=== PATIENT | male | born 1950 | race Caucasian/White ===

== ENCOUNTER 2021-02-25 10:23 | Inpatient (IN) | payer BC ==
[~2021-02-25] VITALS: Ht 175.3 cm; Wt 75.5 kg
[2021-02-25] MEDS ORDERED: IV NS 0.9% 1,000 ML BAG IV ONE (10:30)
--- NOTE | 2021-02-25 10:34 | NUR ---
The patient is [id number],from home, c/o generalized weakness, BS high result. The patient is alert and oriented x3. Denies pain. In room air and denies SOB. Respiration regular and unlabored. Attach the patient to the monitor.
--- NOTE | 2021-02-25 10:36 | NUR ---
STARTED IV LINE, BLOOD SPECIMEN COLLECTED AND SENT TO THE LAB.
[2021-02-25 10:45] LABS: BASOPHILS # (AUTO) 0.3 K/uL (0.0-0.2); BASOPHILS % (AUTO) 1.9 % (0.0-2.0); EOSINOPHILS % (AUTO) 0.5 % (0.0-6.0); HEMATOCRIT 47 % (39-51); HEMOGLOBIN 15.8 g/dL (13.5-17.5); LYMPHOCYTES # (AUTO) 1.3 K/uL (0.8-4.8); LYMPHOCYTES % (AUTO) 9.8 % (20.0-44.0); MEAN CORPUSCULAR HGB CONC 33 g/dl (31.0-36.0); MEAN CORPUSCULAR VOLUME 90 fL (80-96); MONOCYTES # (AUTO) 0.8 K/uL (0.1-1.30); MONOCYTES % (AUTO) 5.5 % (2.0-12.0); NEUTROPHILS # (AUTO) 11.2 K/uL (1.8-8.9); NEUTROPHILS % (AUTO) 82.3 % (43.0-81.0); PLATELET COUNT (AUTO) 444 K/uL (150-450); RED BLOOD CELL COUNT(AUTO) 5.29 MIL/uL (4.5-6.0); WHITE BLOOD COUNT (AUTO) 13.7 K/uL (4.3-11.0)
--- NOTE | 2021-02-25 10:48 | NUR ---
COVID SWAB DONE AND SENT TO THE LAB
[2021-02-25] MEDS ORDERED: RIVA2.5T PO (11:03)
[2021-02-25] MEDS ORDERED: LORA-259 PO (11:03)
[2021-02-25] MEDS ORDERED: BUTA1CAP46 PO (11:03)
[2021-02-25] MEDS ORDERED: ALBU18HF2 IH (11:03)
[2021-02-25] MEDS ORDERED: METO50TA7 PO (11:03)
[2021-02-25] MEDS ORDERED: ICOS1CAP PO (11:03)
[2021-02-25 11:05] LABS: ALANINE AMINOTRANSFERASE 26 U/L (12-78); ALBUMIN 3.6 g/dL (3.4-5.0); ALKALINE PHOSPHATASE 96 U/L (46-116); ASPARTATE AMINOTRANSFERASE 15 U/L (15-37); BILIRUBIN,DIRECT 0.2 mg/dL (0.0-0.2); BILIRUBIN,TOTAL 0.8 mg/dL (0.2-1.0); CALCIUM, SERUM 9.5 mg/dL (8.5-10.1); CARBON DIOXIDE 24 mmol/L (21-32); CHLORIDE 95 mmol/L (98-107); POTASSIUM 3.8 mmol/L (3.5-5.1); SODIUM SERUM 131 mmol/L (136-145); TOTAL PROTEIN, SERUM 8.3 g/dL (6.4-8.2); UREA NITROGEN, BLOOD 33 mg/dL (7-18)
[2021-02-25 11:06] LABS: GLUCOSE 539 mg/dL (74-106)
[2021-02-25 11:30] LABS: LYMPHOCYTES % (MANUAL) 13 % (16-48); MONOCYTES % (MANUAL) 10 % (0-11.0); NEUTROPHILS % (MANUAL) 77 (42-76)
[2021-02-25] MEDS ORDERED: INSULIN REGULAR, HUMAN 100 UNIT/ML 10 ML VIAL SQ ONE ×2 (11:30→14:00)
[2021-02-25] MEDS ORDERED: INSULIN REGULAR, HUMAN 100 UNIT/ML 10 ML VIAL ONE (11:37)
--- NOTE | 2021-02-25 11:48 | NUR ---
CALLED NURSING SUP REGARDING PT BED
--- NOTE | 2021-02-25 12:09 | NUR ---
URINE COLLECTED AND SENT TO THE LAB
[2021-02-25 12:50] LABS: BILIRUBIN,URINE Negative (NEGATIVE); LEUKOCYTE ESTERASE ,URINE Negative (NEGATIVE); NITRITE, URINE Negative (NEGATIVE); PH,URINE 5.5 (5.0-8.0); PROTEIN,URINE 100 mg/dl (NEGATIVE); UGLUCOSE >=1000 mg/dL (NEGATIVE); UROBILINOGEN,URINE 0.2 EU/dL (0.2)
[2021-02-25 13:07] LABS: COLOR,URINE DARK YELLOW (YELLOW)
[2021-02-25 13:15] LABS: BACTERIA,URINE Few /HPF (None Seen); RBC,URINE 81-100 /HPF (0-2); SQUAMOUS EPITHELIAL CELL,UR Rare /HPF (None Seen); WBC,URINE 0-2 /HPF (0-3)
[2021-02-25 13:16] LABS: URIC ACID CRYSTALS,URINE Moderate /HPF (None Seen)
--- NOTE | 2021-02-25 13:34 | NUR ---
BS 473. HOMA STARR AWARE
[2021-02-25] MEDS ORDERED: IV NS 0.9% 1,000 ML IV ONE (14:00)
--- NOTE | 2021-02-25 14:41 | NUR ---
room 312-1
[2021-02-25 14:50] VITALS: BP 135/79
--- NOTE | 2021-02-25 14:57 | NUR ---
REPORT GIVEN TO NURSE MOMIN
--- NOTE | 2021-02-25 15:20 | NUR ---
TRAFFIC OPERATORDISTRICT EXTENSION SERVICE AGENT NOTES RECEIVED PATIENT FROM ER ENDORSED BY NURSE RAMILA MARCOS. ON ROOM AIR TOLERATING WELL. NO SOB NOTED. NOT IN DISTRESS. WITH NO COMPLAINTS OF PAIN AT THIS TIME. WITH IV ACCESS AT RIGHT AC G18, INTACT AND PATENT. MADE COMFORTABLE ON BED. ON TELE MONITOR CURRENTLY READING SINUS TACHYCARDIA AT 115BPM. SKIN ASSESSMENT DONE. PHOTO TAKEN AND PLACED ON CHART. SAFETY MEASURES IN PLACED. BED ON LOWEST AND LOCKED POSITION, SIDE RAILS UP X2. CALL LIGHT WITHIN REACH. WILL CONTINUE TO MONITOR.
--- NOTE | 2021-02-25 16:07 | NUR ---
wheeled patient via gurney accompanied by RN and emt in no distress. RN assigned to patient at bedside to assume care.
[2021-02-25] MEDS ORDERED: Z GUARD REMEDY 2 OZ OINT TP PRN (17:00)
[2021-02-25] MEDS ORDERED: ZOLPIDEM TARTRATE 5 MG TABLET PO PRN (17:00)
[2021-02-25] MEDS ORDERED: MAG HYDROX/AL HYDROX/SIMETH 30 ML UDC PO PRN (17:00)
[2021-02-25] MEDS ORDERED: MAGNESIUM HYDROXIDE 30 ML UDC PO PRN (17:00)
[2021-02-25] MEDS ORDERED: DEXTROSE 50%-WATER 50 ML DISP.SYRIN IV PRN (17:00)
--- NOTE | 2021-02-25 17:30 | NUR ---
HEAD CHEF CLOSING NOTES PATIENT RESTING ON BED AND A/O X3. ON ROOM AIR TOLERATING WELL. NO SOB NOTED. NOT IN DISTRESS. WITH NO COMPLAINTS OF PAIN AT THIS TIME. WITH IV ACCESS AT RIGHT AC G18 WITH NS AT 75ML/HR INFUSING WELL. ON TELE MONITOR CURRENTLY READING SINUS TACHYCARDIA AT 118BPM. SAFETY MEASURES IN PLACED. BED ON LOWEST AND LOCKED POSITION, SIDE RAILS UP X2. CALL LIGHT WITHIN REACH. WILL ENDORSE TO NEXT SHIFT FOR STUART.
[2021-02-25 18:00] VITALS: BP 166/82
[2021-02-25] MEDS ORDERED: ALBUTEROL FS 2.5 MG/0.5 ML VIAL.NEB IH PRN (18:00)
[2021-02-25] MEDS: BLOOD SUGAR DIAGNOSTIC 1 EACH STRIP VI SCH ×2 (18:40→21:54)
[2021-02-25] MEDS: INSULIN REGULAR, HUMAN 100 UNIT/ML 3 ML VIAL SQ PRN (18:42)
[2021-02-25] MEDS: IV NS 0.9% 1,000 ML IV PRN (19:30)
--- NOTE | 2021-02-25 19:30 | NUR ---
RN NOTE PT RECEIVED IN BED. PT IS ON ROOM AIR SHOWING NO S/S OF RESP DISTRESS/SOB. BREATHING EVEN AND UNLABORED. ON MANAGER PERSONNEL SELECTION SHOWING ST. PT IS ALERT AND ORIENTED X3. RIGHT KNEE SCAB NOTED. IV ACCESS NOTED ON RIGHT AC #18. LINE FLUSHED, PATENT, AND INTACT WITH NO SIGNS OF INFILTRATION. ALL SAFETY MEASURES IMPLEMENTED. CALL LIGHT WITHIN REACH. BED ALARM ON. BED LOCKED AND IN LOWEST POSITION. WILL CONTINUE TO MONITOR AND ASSESS FOR ANY CHANGES DURING SHIFT.
[2021-02-25 20:00] VITALS: BP 143/73
[2021-02-25] MEDS: RIVAROXABAN 10 MG TABLET PO SCH (21:26)
[2021-02-25] MEDS: METOPROLOL SUCCINATE 50 MG TAB.SR.24H PO SCH (21:26)
--- NOTE | 2021-02-25 21:47 | NUR ---
RN NOTE PT DROPPED METOPROLOL. PULLED OUT ANOTHER METOPROLOL FROM [employer]. HOSPITALITY HOST AWARE.
[2021-02-25] MEDS: *INSULIN REGULAR(HUMULIN R)HUM 100 UNIT/ML VIAL SQ PRN (21:53)
[2021-02-26] VITALS: BP 148/90
[2021-02-26 04:00] VITALS: BP 146/86
--- NOTE | 2021-02-26 06:38 | NUR ---
RN NOTE PT PULLED OUT IV LINE. IV RE-INSERTED IN RIGHT AC #22. LINE FLUSHED, PATENT, AND INTACT.
--- NOTE | 2021-02-26 06:49 | NUR ---
RN NOTE NO CHANGES IN PT CONDITION DURING SHIFT. PT RESTING COMFORTABLY. ON ROOM AIR SHOWING NO S/S OF RESP DISTRESS/SOB. BREATHING EVEN AND UNLABORED. IV ACCESS NOTED ON RIGHT AC #22. LINE FLUSHED, PATENT, AND INTACT WITH NO SIGNS OF INFILTRATION. ALL DUE MEDS GIVEN ORDERED. PT KEPT CLEAN AND COMFORTABLE. ALL SAFETY MEASURES IMPLEMENTED. CALL LIGHT WITHIN REACH. BED ALARM ON. BED LOCKED AND IN LOWEST POSITION. WILL ENDORSE TO MORNING SHIFT RN FOR STUART.
--- NOTE | 2021-02-26 07:30 | NUR ---
CHRONOMETER ASSEMBLER AND ADJUSTER OPENING NOTES PATIENT RESTING ON BED AND A/O X3. ON ROOM AIR TOLERATING WELL. NO SOB NOTED. NOT IN DISTRESS. WITH NO COMPLAINTS OF PAIN AT THIS TIME. WITH IV ACCESS AT RIGHT AC G 22 WITH NS AT 75ML/HR INFUSING WELL. ON TELE MONITOR CURRENTLY READING SINUS TACHYCARDIA AT 105 BPM. SAFETY MEASURES IN PLACED. BED ON LOWEST AND LOCKED POSITION, SIDE RAILS UP X2. CALL LIGHT WITHIN REACH. WILL CONTINUE TO MONITOR.
[2021-02-26] MEDS: BLOOD SUGAR DIAGNOSTIC 1 EACH STRIP VI SCH ×4 (07:35→22:07)
[2021-02-26] MEDS: INSULIN REGULAR, HUMAN 100 UNIT/ML 3 ML VIAL SQ PRN ×3 (07:38→17:27)
[2021-02-26 07:40] LABS: BASOPHILS # (AUTO) 0.1 K/uL (0.0-0.2); BASOPHILS % (AUTO) 0.9 % (0.0-2.0); EOSINOPHILS % (AUTO) 1.2 % (0.0-6.0); HEMATOCRIT 42 % (39-51); HEMOGLOBIN 14.2 g/dL (13.5-17.5); LYMPHOCYTES # (AUTO) 2.2 K/uL (0.8-4.8); LYMPHOCYTES % (AUTO) 16.3 % (20.0-44.0); MEAN CORPUSCULAR HGB CONC 34 g/dl (31.0-36.0); MEAN CORPUSCULAR VOLUME 89 fL (80-96); MONOCYTES # (AUTO) 0.9 K/uL (0.1-1.30); MONOCYTES % (AUTO) 6.6 % (2.0-12.0); NEUTROPHILS # (AUTO) 10.2 K/uL (1.8-8.9); PLATELET COUNT (AUTO) 350 K/uL (150-450); RED BLOOD CELL COUNT(AUTO) 4.69 MIL/uL (4.5-6.0); WHITE BLOOD COUNT (AUTO) 13.6 K/uL (4.3-11.0)
[2021-02-26] MEDS: PANTOPRAZOLE 40 MG TABLET.DR PO SCH (07:48)
[2021-02-26 08:00] VITALS: BP 167/94
[2021-02-26 08:10] LABS: CALCIUM, SERUM 8.9 mg/dL (8.5-10.1); CARBON DIOXIDE 24 mmol/L (21-32); CHLORIDE 108 mmol/L (98-107); CREATININE 1.9 mg/dL (0.6-1.3); GLUCOSE 243 mg/dL (74-106); MAGNESIUM 2.2 mg/dL (1.8-2.4); PHOSPHORUS 2.6 mg/dL (2.5-4.9); POTASSIUM 3.7 mmol/L (3.5-5.1); SODIUM SERUM 143 mmol/L (136-145); UREA NITROGEN, BLOOD 29 mg/dL (7-18)
[2021-02-26] MEDS: METOPROLOL SUCCINATE 50 MG TAB.SR.24H PO SCH ×2 (08:40→22:05)
[2021-02-26] MEDS: RIVAROXABAN 10 MG TABLET PO SCH ×2 (08:41→22:06)
[2021-02-26] MEDS: IV NS 0.9% 1,000 ML IV PRN (08:42)
[2021-02-26 12:00] VITALS: BP 162/86
--- NOTE | 2021-02-26 12:05 | NUR ---
RN NOTES PATIENT ACCIDENTALLY PULLED OUT IV. REINSERTED AN IV USING IV CATHETER G#22 ON PATIENT'S FOREARM. PATENT AND FLUSHES WELL.
[2021-02-26] MEDS: ACETAMINOPHEN 325 MG TABLET PO PRN ×2 (14:33→22:04)
--- NOTE | 2021-02-26 14:33 | NUR ---
RN NOTES PATIENT HAS C/O LEFT KNEE PAIN WITH PAIN SCALE OF 3/10, TYLENOL GIVEN ORDERED.
--- NOTE | 2021-02-26 18:30 | NUR ---
TILE EDGER CLOSING NOTES PATIENT RESTING ON BED AND A/O X3. ON ROOM AIR TOLERATING WELL. BED SIDE. NO SOB NOTED. NOT IN DISTRESS. WITH NO COMPLAINTS OF PAIN AT THIS TIME. WITH IV ACCESS AT RFA G #22 WITH NS AT 75ML/HR INFUSING WELL. ON TELE MONITOR CURRENTLY READING SINUS TACHYCARDIA AT 108 BPM. DUE MEDS GIVEN ORDERED.SAFETY MEASURES IN PLACED. BED ON LOWEST AND LOCKED POSITION, SIDE RAILS UP X2. CALL LIGHT WITHIN REACH. WILL ENDORSE ONCOMING SHIFT FOR STUART..
--- NOTE | 2021-02-26 19:40 | NUR ---
RN NOTES Received patient awake on his bed, a/ox3, with period of confusion, at bedside, SR with BBB on tele monitor HR-97, denies pain , no SOB, call l;ight within reach, siderailsupx2, will continue to monitor
[2021-02-26] MEDS: *INSULIN REGULAR(HUMULIN R)HUM 100 UNIT/ML VIAL SQ PRN (22:09)
[2021-02-27] MEDS: IV NS 0.9% 1,000 ML IV PRN ×2 (00:36→14:32)
[2021-02-27] MEDS: ACETAMINOPHEN 325 MG TABLET PO PRN ×2 (04:25→21:50)
[2021-02-27 06:20] LABS: BASOPHILS # (AUTO) 0.2 K/uL (0.0-0.2); BASOPHILS % (AUTO) 1.6 % (0.0-2.0); EOSINOPHILS % (AUTO) 2.3 % (0.0-6.0); HEMATOCRIT 41 % (39-51); HEMOGLOBIN 13.8 g/dL (13.5-17.5); LYMPHOCYTES # (AUTO) 2.9 K/uL (0.8-4.8); LYMPHOCYTES % (AUTO) 24.8 % (20.0-44.0); MEAN CORPUSCULAR HGB CONC 34 g/dl (31.0-36.0); MEAN CORPUSCULAR VOLUME 89 fL (80-96); MONOCYTES # (AUTO) 0.7 K/uL (0.1-1.30); MONOCYTES % (AUTO) 6.2 % (2.0-12.0); NEUTROPHILS # (AUTO) 7.5 K/uL (1.8-8.9); NEUTROPHILS % (AUTO) 65.1 % (43.0-81.0); PLATELET COUNT (AUTO) 328 K/uL (150-450); RED BLOOD CELL COUNT(AUTO) 4.61 MIL/uL (4.5-6.0); WHITE BLOOD COUNT (AUTO) 11.5 K/uL (4.3-11.0)
--- NOTE | 2021-02-27 06:23 | NUR ---
RN NOTES Awake, denies pain, no SOB, morning care rendered, call light within reach, siderailsupx2, pt. needs attended
[2021-02-27] MEDS: INSULIN REGULAR, HUMAN 100 UNIT/ML 3 ML VIAL SQ PRN ×3 (06:31→16:46)
[2021-02-27 06:35] LABS: CALCIUM, SERUM 7.9 mg/dL (8.5-10.1); CARBON DIOXIDE 23 mmol/L (21-32); CHLORIDE 107 mmol/L (98-107); CREATININE 1.6 mg/dL (0.6-1.3); GLUCOSE 219 mg/dL (74-106); PHOSPHORUS 2.2 mg/dL (2.5-4.9); POTASSIUM 3.5 mmol/L (3.5-5.1); SODIUM SERUM 139 mmol/L (136-145); UREA NITROGEN, BLOOD 24 mg/dL (7-18)
[2021-02-27] MEDS: PANTOPRAZOLE 40 MG TABLET.DR PO SCH (07:26)
--- NOTE | 2021-02-27 07:32 | NUR ---
WELFARE MANAGER OPENING NOTES RECEIVED PATIENT RESTING ON BED AND A/O X3. ON ROOM AIR TOLERATING WELL. NO SOB NOTED. NOT IN DISTRESS. WITH NO COMPLAINTS OF PAIN AT THIS TIME. WITH IV ACCESS AT RIGHT AC G 22 WITH NS AT 75ML/HR INFUSING WELL. ON TELE MONITOR CURRENTLY READING SR HR AT 92 WITH BBB, OCCASIONAL PAC NOTED. SAFETY MEASURES IN PLACED. BED ON LOWEST AND LOCKED POSITION, SIDE RAILS UP X2. CALL LIGHT WITHIN REACH. WILL CONTINUE TO MONITOR ACCORDINGLY.
[2021-02-27] MEDS: BLOOD SUGAR DIAGNOSTIC 1 EACH STRIP VI SCH ×4 (07:34→22:12)
[2021-02-27 08:00] VITALS: BP 163/88
[2021-02-27] MEDS: RIVAROXABAN 10 MG TABLET PO SCH ×2 (08:25→21:53)
[2021-02-27] MEDS: METOPROLOL SUCCINATE 50 MG TAB.SR.24H PO SCH ×2 (08:26→21:50)
[2021-02-27] MEDS ORDERED: Z GUARD REMEDY 2 OZ OINT TP PRN (09:30)
--- NOTE | 2021-02-27 11:04 | NUR ---
RN NOTES BLOOD SUGAR CHECKED, 237, INSULIN COVERAGE GIVEN ORDERED.
[2021-02-27] MEDS ORDERED: K PHOS NEUTRAL 250 MG TABLET PO ONE (12:00)
[2021-02-27 16:00] VITALS: BP 164/103
--- NOTE | 2021-02-27 17:30 | NUR ---
RN NOTES BLOOD SUGAR CHECKED, RESULT 142, INSULIN COVERAGE GIVEN ORDERED.
--- NOTE | 2021-02-27 18:36 | NUR ---
DRUMS TEACHER CLOSING NOTES PATIENT RESTING ON BED AND A/O X3. ON ROOM AIR TOLERATING WELL. NO SOB NOTED. NOT IN DISTRESS. WITH NO COMPLAINTS OF PAIN AT THIS TIME. WITH IV ACCESS AT RIGHT AC G 22 WITH NS AT 75ML/HR INFUSING WELL. ON TELE MONITOR CURRENTLY READING SR HR WITH BBB HR AT 92, OCCASIONAL PAC NOTED. SAFETY MEASURES IN PLACED. BED ON LOWEST AND LOCKED POSITION, SIDE RAILS UP X2. CALL LIGHT WITHIN REACH. ALL NEEDS ATTENDED AND MET. DUE MEDS GIVEN ORDERED. WILL ENDORSE TO ONCOMING SHIFT FOR STUART.
--- NOTE | 2021-02-27 19:40 | NUR ---
rn notes received patient awake on his bed, a/ox4, not in distress, sr with bbb on tele monitor hr-86, call light within reach, siderailsupx2, will continue to monitor
[2021-02-27 20:00] VITALS: BP 139/73
[2021-02-27] MEDS: VALSARTAN 80 MG TABLET PO SCH (21:50)
[2021-02-27] MEDS ORDERED: SIMVASTATIN 10 MG TABLET PO SCH (22:00)
[2021-02-27] MEDS: *INSULIN REGULAR(HUMULIN R)HUM 100 UNIT/ML VIAL SQ PRN (22:01)
[2021-02-28] VITALS: BP 165/85
--- NOTE | 2021-02-28 | NUR ---
RN NOTESS PATIENT WAS COMPLAINING TYLENOL IS NOT WORKING FOR HIS LEG PAIN- GOT AN ORDER FROM DR. ARVIN COSTELLO 5/325 MG PO PRN ORDER NOTED AND CARRIED OUT
[2021-02-28] MEDS: IV NS 0.9% 1,000 ML IV PRN ×2 (02:37→15:55)
[2021-02-28] MEDS: HYDROCODONE/APAP 5/325MG TABLET PO PRN ×4 (02:49→21:23)
--- NOTE | 2021-02-28 02:54 | NUR ---
RN NOTES Complained of terrible leg pain- [place] 1 tab po given ass ordered, V/S stable
[2021-02-28 04:00] VITALS: BP 153/87
[2021-02-28] MEDS: BLOOD SUGAR DIAGNOSTIC 1 EACH STRIP VI SCH ×4 (06:33→21:04)
[2021-02-28] MEDS: INSULIN REGULAR, HUMAN 100 UNIT/ML 3 ML VIAL SQ PRN ×3 (06:34→17:37)
--- NOTE | 2021-02-28 06:41 | NUR ---
RN NOTES AWAKE, MORNING CARE RENDERED, NOT IN DISTRESS, CALL LIGHT WITHIN REACH, SIDERAILSUPX2, PT. NEEDS ATTENDED
[2021-02-28 07:18] LABS: CHOLESTEROL 133 mg/dL (<200); HDL CHOLESTEROL 49 mg/dL (40-60); LDL 58 mg/dL (0-99); TRIGLYCERIDES 152 mg/dL (30-150)
--- NOTE | 2021-02-28 07:34 | NUR ---
CENTRIFUGE SEPARATOR OPERATOR OPENING NOTES RECEIVED PATIENT IN BED, AWAKE. A/O X4, ON ROOM AIR, SATTING @100%. NO S/S OF DISTRESS NOTED. IV ACCESS ON LEFT WRIST #22G PATENT AND INTACT, NS @75ML/HR RUNNING. HOB ELEVATED. SAFETY MEASURES IN PLACE. BED ALARM ON. BED IN LOWEST AND LOCKED POSITION. CALL LIGHT WITHIN REACH. WILL CONTINUE TO MONITOR.
[2021-02-28] MEDS: ASPIRIN 81 MG TAB.CHEW PO SCH (08:24)
[2021-02-28] MEDS: PANTOPRAZOLE 40 MG TABLET.DR PO SCH (08:24)
[2021-02-28] MEDS: METOPROLOL SUCCINATE 50 MG TAB.SR.24H PO SCH ×2 (08:25→21:02)
[2021-02-28] MEDS: VALSARTAN 80 MG TABLET PO SCH ×2 (08:25→21:03)
--- NOTE | 2021-02-28 08:25 | NUR ---
RN NOTES PT MEDICATED WITH NORCO 5/325 MG FOR C/O 8/10 LEFT LEG AND KNEE PAIN. REPOSITIONED FOR COMFORT WILL CONTINUE TO MONITOR.
[2021-02-28] MEDS: RIVAROXABAN 10 MG TABLET PO SCH ×2 (08:27→21:04)
[2021-02-28 09:00] VITALS: BP 167/88
[2021-02-28 12:00] VITALS: BP 148/69
--- NOTE | 2021-02-28 15:16 | NUR ---
RN NOTES PT MEDICATED WITH NORCO 5/325 MG FOR C/O 8/10 LEFT LEG AND KNEE PAIN. REPOSITIONED FOR COMFORT WILL CONTINUE TO MONITOR.
[2021-02-28 16:00] VITALS: BP 151/83
--- NOTE | 2021-02-28 16:40 | NUR ---
CONDUIT INSTALLER OPENING NOTES PATIENT IN BED, AWAKE. A/O X4, ON ROOM AIR, SATTING @99%. NO S/S OF DISTRESS NOTED. IV ACCESS ON LEFT WRIST #22G PATENT AND INTACT, NS @75ML/HR RUNNING. MEDICATED FOR PAIN NEEDED. HOB ELEVATED. SAFETY MEASURES IN PLACE. BED IN LOWEST AND LOCKED POSITION. SR UP X2. CALL LIGHT WITHIN REACH. WILL CONTINUE TO MONITOR.
--- NOTE | 2021-02-28 19:30 | NUR ---
TELE/RN OPENING NOTE RECEIVED PATIENT RESTING IN BED. FAMILY AT BEDSIDE. PATIENT IS ALERT AND ORIENTED X 4. ABLE TO MAKE NEEDS KNOWN. DENIES PAIN AT THIS TIME. CONTINUES ON ROOM AIR WITH NO S/SX OF RESPIRATORY DISTRESS NOTED. IV ACCESS TO LEFT WRIST #22G INTACT AND PATENT. CONTINUES ON IVF NS @ 75ML/HR. CALL LIGHT WITHIN REACH. ASPIRATION, FALL AND SAFETY PRECAUTIONS MAINTAINED. WILL CONTINUE TO MONITOR. Addendum: 02/28/21 at 1956 by EVANGELISTA HARRIS RN CURRENT TELE READING SR.
[2021-02-28 20:00] VITALS: BP 152/81
--- NOTE | 2021-02-28 20:04 | NUR ---
TELE/RN NOTE URINE SAMPLE COLLECTED VIA CLEAN CATCH, LABELLED AND PLACED IN [facility].
[2021-02-28] MEDS: *INSULIN REGULAR(HUMULIN R)HUM 100 UNIT/ML VIAL SQ PRN (21:31)
[2021-03-01] VITALS: BP 156/74
[2021-03-01] MEDS: HYDROCODONE/APAP 5/325MG TABLET PO PRN ×4 (03:17→21:56)
[2021-03-01 04:00] VITALS: BP 146/80
[2021-03-01] MEDS: IV NS 0.9% 1,000 ML IV PRN (04:35)
[2021-03-01 06:12] LABS: BILIRUBIN,URINE NEGATIVE (NEGATIVE); COLOR,URINE YELLOW (YELLOW); LEUKOCYTE ESTERASE ,URINE NEGATIVE (NEGATIVE); NITRITE, URINE NEGATIVE (NEGATIVE); PROTEIN,URINE NEGATIVE (NEGATIVE); UGLUCOSE 500 MG/DL mg/dL (NEGATIVE); UROBILINOGEN,URINE 0.2 EU/dL (0.2)
[2021-03-01] MEDS: ONDANSETRON HCL/PF 4 MG/2 ML VIAL IVP PRN (06:29)
[2021-03-01] MEDS: INSULIN REGULAR, HUMAN 100 UNIT/ML 3 ML VIAL SQ PRN ×3 (06:32→18:07)
[2021-03-01 06:36] LABS: CREATININE, URINE 47.7 MG/DL (30.0-125.0); URINE TOTAL PROTEIN 17.3 mg/dL (0-11.9)
--- NOTE | 2021-03-01 06:40 | NUR ---
TELE/RN CLOSING NOTE PATIENT CURRENTLY RESTING IN BED. AWAKE, ALERT AND ORIENTED X 4. ABLE TO MAKE NEEDS KNOWN. DENIES PAIN AT THIS TIME. CONTINUES ON ROOM AIR WITH NO S/SX OF RESPIRATORY DISTRESS NOTED. IV ACCESS TO LEFT WRIST #22G INTACT AND PATENT. CONTINUES ON IVF NS @ 75ML/HR. CALL LIGHT WITHIN REACH. ASPIRATION, FALL AND SAFETY PRECAUTIONS MAINTAINED. WILL ENDORSE PLAN OF CARE TO ONCOMING SHIFT.
[2021-03-01] MEDS: BLOOD SUGAR DIAGNOSTIC 1 EACH STRIP VI SCH ×4 (06:59→22:14)
[2021-03-01 07:05] LABS: BASOPHILS # (AUTO) 0.1 K/uL (0.0-0.2); BASOPHILS % (AUTO) 1.1 % (0.0-2.0); EOSINOPHILS % (AUTO) 3.2 % (0.0-6.0); HEMATOCRIT 39 % (39-51); HEMOGLOBIN 13.1 g/dL (13.5-17.5); LYMPHOCYTES # (AUTO) 3.1 K/uL (0.8-4.8); LYMPHOCYTES % (AUTO) 27.2 % (20.0-44.0); MEAN CORPUSCULAR HGB CONC 33 g/dl (31.0-36.0); MEAN CORPUSCULAR VOLUME 90 fL (80-96); MONOCYTES % (AUTO) 8.9 % (2.0-12.0); NEUTROPHILS # (AUTO) 6.7 K/uL (1.8-8.9); NEUTROPHILS % (AUTO) 59.6 % (43.0-81.0); PLATELET COUNT (AUTO) 328 K/uL (150-450); RED BLOOD CELL COUNT(AUTO) 4.39 MIL/uL (4.5-6.0); WHITE BLOOD COUNT (AUTO) 11.2 K/uL (4.3-11.0)
[2021-03-01 07:20] LABS: CARBON DIOXIDE 24 mmol/L (21-32); CHLORIDE 108 mmol/L (98-107); CREATININE 1.4 mg/dL (0.6-1.3); GLUCOSE 223 mg/dL (74-106); MAGNESIUM 1.9 mg/dL (1.8-2.4); PHOSPHORUS 2.2 mg/dL (2.5-4.9); POTASSIUM 4.2 mmol/L (3.5-5.1); SODIUM SERUM 141 mmol/L (136-145); UREA NITROGEN, BLOOD 17 mg/dL (7-18)
--- NOTE | 2021-03-01 07:38 | NUR ---
RN OPENING NOTE PATIENT SLEEP IN BED RESTING. AWAKEN TO VERBAL STIMULI. A/O X4. NO S/S OF PAIN NOTED AT THIS TIME. PATIENT ON ROOM AIR, NO DISTRESS OR SHORTNESS OF BREATH NOTED. IV ACCESS TO LEFT WRIST #22G, INTACT AND PATENT. PATIENT HAVE A EXTERNAL BOTTLE SORTER WITH CURRENT READING OF S.R. AND HR OF 85. FALL AND SAFETY MEASURES IN PLACE, BED ALARM ON, BED IN LOW AND LOCK POSITION, CALL LIGHT WITHIN EASY REACH, SIDE RAILS UP X2. WILL CONTINUE TO MONITOR.
[2021-03-01 07:45] LABS: BACTERIA,URINE Rare /HPF (None Seen); WBC,URINE 0-2 /HPF (0-3)
[2021-03-01 07:46] LABS: SQUAMOUS EPITHELIAL CELL,UR Rare /HPF (None Seen); URIC ACID CRYSTALS,URINE Few /HPF (None Seen)
[2021-03-01 08:00] VITALS: BP 160/82
[2021-03-01] MEDS: ASPIRIN 81 MG TAB.CHEW PO SCH (08:35)
[2021-03-01] MEDS: PANTOPRAZOLE 40 MG TABLET.DR PO SCH (08:35)
[2021-03-01] MEDS: RIVAROXABAN 10 MG TABLET PO SCH ×2 (08:38→20:19)
[2021-03-01] MEDS: METOPROLOL SUCCINATE 50 MG TAB.SR.24H PO SCH ×2 (08:39→20:19)
[2021-03-01] MEDS: VALSARTAN 80 MG TABLET PO SCH ×2 (08:39→20:18)
[2021-03-01 08:55] LABS: EOSINOPHIL,URINE None Seen
[2021-03-01] MEDS ORDERED: K PHOS NEUTRAL 250 MG TABLET PO ONE (09:00)
[2021-03-01] MEDS: METOCLOPRAMIDE HCL 10 MG/2 ML VIAL IV PRN ×2 (10:08→22:23)
[2021-03-01] MEDS: ACETAMINOPHEN 325 MG TABLET PO PRN ×2 (11:50→12:17)
[2021-03-01 12:00] VITALS: BP 144/84
[2021-03-01] MEDS: MORPHINE SULFATE INJ 2 MG/ML DISP.SYRIN IV PRN (12:33)
[2021-03-01 16:00] VITALS: BP 167/85
--- NOTE | 2021-03-01 19:15 | NUR ---
CLINICAL RESOURCE COORDINATOR OPENING NOTE PATIENT WAS RECEIVED WITHIN HIM AWAKE IN BED. PATIENTS PRESENTS IN A PLEASANT MOOD. NO S/S OF DISTRESS; BREATHING SYMMETRICAL. SKIN IS CLEAN AND WARM, NO PITTING PRESENT. PATIENT IS SR W/ BBB 86. L WRIST #22G NS @75ML/HR. SAFETY MEASURES FOLLOWED: BED AT LOWEST POSITION, RAILS UP X2, CALL BOSCH WITHIN REACH. WILL CONTINUE TO MONITOR PATIENT THROUGHOUT SHIFT.
--- NOTE | 2021-03-01 19:20 | NUR ---
RN CLOSING NOTE PATIENT IS AWAKE IN BED RESTING. A/O X4. NO S/S OF PAIN NOTED AT THIS TIME. PATIENT ON ROOM AIR, NO DISTRESS OR SHORTNESS OF BREATH NOTED. IV ACCESS TO LEFT WRIST #22G, INTACT AND PATENT. PATIENT HAVE A EXTERNAL BALANCE SHEET ANALYST WITH CURRENT READING OF S.R. AND HR OF 86. FALL AND SAFETY MEASURES IN PLACE, BED ALARM ON, BED IN LOW AND LOCK POSITION, CALL LIGHT WITHIN EASY REACH, SIDE RAILS UP X2. WILL ENDORSE TO WARNING COORDINATION METEOROLOGIST.
[2021-03-01 20:00] VITALS: BP 144/74
--- NOTE | 2021-03-01 22:15 | NUR ---
MULTIMEDIA AUTHOR NOTE BS 153MG/DL. 2 UNITS ADMINISTERED PER SLIDING SCALE.
[2021-03-01] MEDS: *INSULIN REGULAR(HUMULIN R)HUM 100 UNIT/ML VIAL SQ PRN (22:22)
[2021-03-02] VITALS: BP 150/84
[2021-03-02] MEDS: IV NS 0.9% 1,000 ML IV PRN ×2 (02:06→19:05)
[2021-03-02] MEDS: MORPHINE SULFATE INJ 2 MG/ML DISP.SYRIN IV PRN ×2 (02:07→16:02)
[2021-03-02 04:00] VITALS: BP 145/73
[2021-03-02] MEDS: HYDROCODONE/APAP 5/325MG TABLET PO PRN ×3 (04:27→21:22)
[2021-03-02 06:16] LABS: BASOPHILS # (AUTO) 0.1 K/uL (0.0-0.2); BASOPHILS % (AUTO) 1.3 % (0.0-2.0); EOSINOPHILS % (AUTO) 3.3 % (0.0-6.0); HEMATOCRIT 42 % (39-51); HEMOGLOBIN 14.4 g/dL (13.5-17.5); LYMPHOCYTES # (AUTO) 2.8 K/uL (0.8-4.8); LYMPHOCYTES % (AUTO) 25.3 % (20.0-44.0); MEAN CORPUSCULAR HGB CONC 34 g/dl (31.0-36.0); MEAN CORPUSCULAR VOLUME 90 fL (80-96); MONOCYTES # (AUTO) 0.9 K/uL (0.1-1.30); MONOCYTES % (AUTO) 7.9 % (2.0-12.0); NEUTROPHILS % (AUTO) 62.2 % (43.0-81.0); PLATELET COUNT (AUTO) 320 K/uL (150-450); RED BLOOD CELL COUNT(AUTO) 4.71 MIL/uL (4.5-6.0); WHITE BLOOD COUNT (AUTO) 11.2 K/uL (4.3-11.0)
[2021-03-02 06:38] LABS: CALCIUM, SERUM 8.3 mg/dL (8.5-10.1); CARBON DIOXIDE 25 mmol/L (21-32); CHLORIDE 106 mmol/L (98-107); CREATININE 1.4 mg/dL (0.6-1.3); GLUCOSE 234 mg/dL (74-106); PHOSPHORUS 2.5 mg/dL (2.5-4.9); POTASSIUM 3.4 mmol/L (3.5-5.1); SODIUM SERUM 139 mmol/L (136-145); UREA NITROGEN, BLOOD 15 mg/dL (7-18)
[2021-03-02] MEDS: BLOOD SUGAR DIAGNOSTIC 1 EACH STRIP VI SCH ×4 (06:54→21:03)
[2021-03-02] MEDS: INSULIN REGULAR, HUMAN 100 UNIT/ML 3 ML VIAL SQ PRN ×3 (06:58→17:30)
--- NOTE | 2021-03-02 07:12 | NUR ---
SEWER HAND CLOSING NOTE PATIENT IS AWAKE IN HIS BED. NO S/S OF DISTRESS; BREATHING SYMMETRICAL; ON ROOM AIR. TELE: SR 95 W/ BBB. IV RH #22G; NS RUNNING AT 75ML/HR. PAIN IS CONTROLLED BY ORDERED MEDS. SAFETY MEASURES IN PLACE: RAILS UP X2, BED AT LOWEST POSITION, CALL BOSCH WITHIN REACH. WILL ENDORSE TO DAY SHIFT FOR STUART.
--- NOTE | 2021-03-02 07:57 | NUR ---
RN OPENING NOTE PATIENT SLEEP IN BED RESTING. AWAKEN TO VERBAL STIMULI. A/O X4. NO S/S OF PAIN NOTED AT THIS TIME. PATIENT ON ROOM AIR, NO DISTRESS OR SHORTNESS OF BREATH NOTED. IV ACCESS TO RIGHT HAND #22G, INTACT AND PATENT. PATIENT HAVE A EXTERNAL ORACLE PL SQL DEVELOPER WITH CURRENT READING OF S.R. AND HR OF 95. FALL AND SAFETY MEASURES IN PLACE, BED ALARM ON, BED IN LOW AND LOCK POSITION, CALL LIGHT WITHIN EASY REACH, SIDE RAILS UP X2. WILL CONTINUE TO MONITOR.
[2021-03-02 08:00] VITALS: BP 156/93
[2021-03-02] MEDS: VALSARTAN 80 MG TABLET PO SCH ×2 (08:31→20:43)
[2021-03-02] MEDS: PANTOPRAZOLE 40 MG TABLET.DR PO SCH (08:32)
[2021-03-02] MEDS: METOPROLOL SUCCINATE 50 MG TAB.SR.24H PO SCH ×2 (08:32→20:43)
[2021-03-02] MEDS: ASPIRIN 81 MG TAB.CHEW PO SCH (08:32)
[2021-03-02] MEDS: RIVAROXABAN 10 MG TABLET PO SCH ×2 (08:34→20:44)
[2021-03-02] MEDS ORDERED: POTASSIUM CHLORIDE 20 MEQ TAB.PRT.SR PO SCH ×2 (09:00)
[2021-03-02] MEDS ORDERED: POTASSIUM CHLORIDE 20 MEQ TAB.PRT.SR PO ONE (11:19)
--- NOTE | 2021-03-02 11:25 | NUR ---
RN NOTE POTASSIUM PULLED FROM STOCK MEDS D/T INACCESS TO ADMINISTER SCHEDULED POTASSIUM.
[2021-03-02 16:00] VITALS: BP 156/91
--- NOTE | 2021-03-02 18:52 | NUR ---
RN CLOSING NOTE PATIENT SLEEP IN BED RESTING. AWAKEN TO VERBAL STIMULI. A/O X4. NO S/S OF PAIN NOTED AT THIS TIME. PATIENT ON ROOM AIR, NO DISTRESS OR SHORTNESS OF BREATH NOTED. IV ACCESS TO RIGHT HAND #22G, INTACT AND PATENT. PATIENT HAVE A EXTERNAL PARASITOLOGY TEACHER WITH CURRENT READING OF S.R. AND HR OF 90'S. FALL AND SAFETY MEASURES IN PLACE, BED ALARM ON, BED IN LOW AND LOCK POSITION, CALL LIGHT WITHIN EASY REACH, SIDE RAILS UP X2. WILL GIVE REPORT TO NIGHT NURSE FOR STUART.
--- NOTE | 2021-03-02 19:44 | NUR ---
CENTRIFUGAL SCREEN TENDER OPENING NOTES RECEIVED PT IN BED, AWAKE. AOx4. ABLE TO MAKE NEEDS KNOWN. ON RA AND TOLERATING WELL. NO SOB NOTED. NO S/SX OF RESPIRATORY DISTRESS NOTED. TELE MONITOR DETECTS SINUS TACHYCARDIA WITH BUNDLE BRANCH BLOCKS AND RATE OF 112. IV ACCES IN R AC #22 RUNNING NS @ 50 ML/HR. IV IS INTACT, PATENT, AND FLUSHING WELL. SAFETY PRECAUTIONS IN PLACE: BED IN LOWEST, LOCKED POSITION, SIDERAILS UPx2, AND BRAKES ON. TABLE AND CALL LIGHT WITHIN REACH. WILL CONTINUE TO MONITOR.
[2021-03-02 20:23] VITALS: BP 144/89
[2021-03-02] MEDS: *INSULIN REGULAR(HUMULIN R)HUM 100 UNIT/ML VIAL SQ PRN (21:17)
--- NOTE | 2021-03-02 21:22 | NUR ---
ADMINISTERED NORCO PER MD ORDER. VS WNL. WILL CONTINUE TO MONITOR.
[2021-03-03 00:18] VITALS: BP 169/86
[2021-03-03 05:58] VITALS: BP 169/83
--- NOTE | 2021-03-03 07:23 | NUR ---
TRICOT KNITTING MACHINE OPERATOR CLOSING NOTES PT IN BED, AWAKE. AOx3, WITH EPISODES OF CONFUSION. ON RA AND TOLERATING WELL. NO SOB NOTED. NO S/SX OF RESPIRATORY DISTRESS NOTED. TELE MONITOR DETECTS SINUS TACHYCARDIA WITH BUNDLE BRANCH BLOCKS AND RATE OF 112. IV ACCES IN R AC #22 RUNNING NS @ 50 ML/HR. IV IS INTACT, PATENT, AND FLUSHING WELL. ALL NEEDS MET. PT KEPT CLEAN AND DRY. SAFETY PRECAUTIONS IN PLACE: BED IN LOWEST, LOCKED POSITION, SIDERAILS UPx2, AND BRAKES ON. TABLE AND CALL LIGHT WITHIN REACH. WILL ENDORSE TO ONCOMING SHIFT FOR STUART.
[2021-03-03] MEDS: INSULIN REGULAR, HUMAN 100 UNIT/ML 3 ML VIAL SQ PRN ×3 (07:25→17:22)
--- NOTE | 2021-03-03 07:35 | NUR ---
BALLROOM DANCER OPENING NOTE: RECEIVED REPORT AT PATIENT'S BEDSIDE. PATIENT AWAKE A&O X 3-4, COMMUNICATIVE, VERBALIZING NEEDS EFFECTIVELY. NAD AT THIS TIME. VSS.
[2021-03-03 07:48] LABS: CALCIUM, SERUM 8.6 mg/dL (8.5-10.1); CARBON DIOXIDE 19 mmol/L (21-32); CHLORIDE 107 mmol/L (98-107); CREATININE 1.4 mg/dL (0.6-1.3); GLUCOSE 181 mg/dL (74-106); POTASSIUM 4.1 mmol/L (3.5-5.1); SODIUM SERUM 137 mmol/L (136-145); UREA NITROGEN, BLOOD 14 mg/dL (7-18)
[2021-03-03 08:00] VITALS: BP 158/84
[2021-03-03] MEDS: BLOOD SUGAR DIAGNOSTIC 1 EACH STRIP VI SCH ×4 (08:27→21:31)
[2021-03-03] MEDS: ASPIRIN 81 MG TAB.CHEW PO SCH (08:34)
[2021-03-03] MEDS: PANTOPRAZOLE 40 MG TABLET.DR PO SCH (08:34)
[2021-03-03] MEDS: VALSARTAN 80 MG TABLET PO SCH ×2 (08:35→21:14)
[2021-03-03] MEDS: METOPROLOL SUCCINATE 50 MG TAB.SR.24H PO SCH ×2 (08:35→21:14)
[2021-03-03] MEDS: RIVAROXABAN 10 MG TABLET PO SCH ×2 (08:37→21:13)
[2021-03-03] MEDS: GLUCERNA SHAKE 237 ML CAN PO SCH (08:38)
[2021-03-03] MEDS: HYDROCODONE/APAP 5/325MG TABLET PO PRN ×2 (09:01→21:11)
[2021-03-03] MEDS ORDERED: PANT40TA49 PO (10:42)
[2021-03-03] MEDS ORDERED: Hydrocodone/Apap 5/325MG PO (10:42)
[2021-03-03] MEDS ORDERED: *INS REG SQ (10:42)
[2021-03-03] MEDS ORDERED: INSU100V7 SQ (10:42)
[2021-03-03] MEDS ORDERED: ASPI-1169 PO (10:42)
[2021-03-03] MEDS ORDERED: INSU100V28 SQ (10:42)
[2021-03-03] MEDS ORDERED: Valsartan 80MG PO (10:42)
[2021-03-03 12:00] VITALS: BP 154/89
[2021-03-03] MEDS: MORPHINE SULFATE INJ 2 MG/ML DISP.SYRIN IV PRN ×2 (12:55→17:59)
[2021-03-03 16:00] VITALS: BP 140/80
[2021-03-03] MEDS: MEGESTROL ACETATE SUSP 400 MG/10 ML UDC PO SCH (17:05)
[2021-03-03] MEDS: IV NS 0.9% 1,000 ML IV PRN (17:29)
--- NOTE | 2021-03-03 17:42 | NUR ---
KILN FIRER NOTES INSULIN HELD BEFORE DINNER R/T PATIENT NOT EATING. FIRST DOSE OF MEGACE ADMINISTERED PER MD ORDER. PATIENT IN NAD AND STABLE AT THIS TIME. NO S/SX OF HYPER/HYPOGLYCEMIA OBSERVED/REPORTED.
--- NOTE | 2021-03-03 18:39 | NUR ---
WEIGHT TRAINER CLOSING NOTES: PATIENT AWAKE, IN BED, AT BEDSIDE VISITING. Pt ALERT AND ORIENTED X4 AT THIS TIME. NAD. VSS. Pt MEDICATED FOR PAIN PRIMARILY AFFECTING HIS GROIN AND LEFT KNEE THROUGHOUT THE DAY WITH PRN ANALGESICS PER MD ORDER WITH EFFECTIVE RESULTS.
--- NOTE | 2021-03-03 19:52 | NUR ---
TYING MACHINE OPERATOR LUMBER OPENING NOTES RECEIVED PT IN BED, AWAKE. AOx3, WITH CONFUSION. ABLE TO MAKE NEEDS KNOWN. ON RA AND TOLERATING WELL. NO SOB NOTED. NO S/SX OF RESPIRATORY DISTRESS NOTED. TELE MONITOR DETECTS SINUS TACHYCARDIA WITH BUNDLE BRANCH BLOCKS AND RATE OF 102. IV ACCES IN R AC #22 RUNNING NS @ 50 ML/HR. SAFETY PRECAUTIONS IN PLACE: BED IN LOWEST, LOCKED POSITION, SIDERAILS UPx2, AND BRAKES ON. TABLE AND CALL LIGHT WITHIN REACH. WILL CONTINUE TO MONITOR.
[2021-03-03 20:00] VITALS: BP 144/85
[2021-03-03] MEDS: ACETAMINOPHEN 325 MG TABLET PO PRN (21:15)
[2021-03-03] MEDS: *INSULIN REGULAR(HUMULIN R)HUM 100 UNIT/ML VIAL SQ PRN (21:36)
[2021-03-04] VITALS: BP 142/75
[2021-03-04] MEDS: MORPHINE SULFATE INJ 2 MG/ML DISP.SYRIN IV PRN ×3 (01:52→23:26)
--- NOTE | 2021-03-04 01:53 | NUR ---
ADMINISTERED MORPHINE FOR 9/10 PAIN PER MD ORDER. VS WNL. WILL CONTINUE TO MONITOR.
[2021-03-04] MEDS: PANTOPRAZOLE 40 MG TABLET.DR PO SCH (06:43)
[2021-03-04] MEDS: HYDROCODONE/APAP 5/325MG TABLET PO PRN ×2 (06:44→20:21)
[2021-03-04] MEDS: ONDANSETRON HCL/PF 4 MG/2 ML VIAL IVP PRN (06:44)
[2021-03-04] MEDS: INSULIN REGULAR, HUMAN 100 UNIT/ML 3 ML VIAL SQ PRN ×3 (06:46→17:14)
[2021-03-04] MEDS: BLOOD SUGAR DIAGNOSTIC 1 EACH STRIP VI SCH ×4 (06:47→21:48)
--- NOTE | 2021-03-04 06:54 | NUR ---
ADMINISTERED NORCO FOR PAIN PER MD ORDER. ALSO ADMINISTERED ZOFRAN FOR NAUSEA PER MD ORDER. VS WNL. WILL CONTINUE TO MONITOR.
--- NOTE | 2021-03-04 06:56 | NUR ---
COVERING AND LINING SUPERVISOR CLOSING NOTES PT IN BED, AWAKE. AOx3, WITH PERIODS OF CONFUSION. ABLE TO MAKE NEEDS KNOWN. ON RA AND TOLERATING WELL. NO SOB NOTED. NO S/SX OF RESPIRATORY DISTRESS NOTED. TELE MONITOR DETECTS SINUS TACHYCARDIA WITH BUNDLE BRANCH BLOCKS AND RATE OF 102. IV ACCES IN R AC #22. IV IS INTACT, PATENT AND FLUSHING WELL. ALL NEEDS MET. PT KEPT CLEAN AND DRY. SAFETY PRECAUTIONS IN PLACE: BED IN LOWEST, LOCKED POSITION, SIDERAILS UPx2, AND BRAKES ON. TABLE AND CALL LIGHT WITHIN REACH. [facility]
--- NOTE | 2021-03-04 07:26 | NUR ---
MANAGER ENVIRONMENTAL HEALTH AND SAFETY OPENING NOTES RECEIVED PT IN BED AWAKE WATCHING TV. A/O X3. ABLE TO MAKE NEEDS KNOWN WITH CONFUSION. ON ROOM AIR, TOLERATING WELL, BREATHING EVEN AND UNLABORED. ON TELE MONITOR WITH CURRENT READING OF NSR WITH BBB'S, HR ON E90'S, NO C/O CARDIAC DISTRESS VOICED AT THIS TIME. IV SL IN RIGHT HAND G#22 INTACT AND PATIENT. SAFETY PRECAUTIONS IN PLACE: BED IN LOWEST LOCKED POSITION, SIDE-RAILS UPx2. TABLE AND CALL LIGHT WITHIN REACH. WILL CONTINUE TO MONITOR.
[2021-03-04] MEDS: METOPROLOL SUCCINATE 50 MG TAB.SR.24H PO SCH ×2 (08:28→20:12)
[2021-03-04] MEDS: MEGESTROL ACETATE SUSP 400 MG/10 ML UDC PO SCH ×2 (08:28→16:37)
[2021-03-04] MEDS: ASPIRIN 81 MG TAB.CHEW PO SCH (08:28)
[2021-03-04 08:29] VITALS: BP 172/83
[2021-03-04] MEDS: VALSARTAN 80 MG TABLET PO SCH ×2 (08:29→20:11)
[2021-03-04] MEDS: RIVAROXABAN 10 MG TABLET PO SCH ×2 (08:30→20:15)
[2021-03-04] MEDS: GLUCERNA SHAKE 237 ML CAN PO SCH (08:30)
--- NOTE | 2021-03-04 09:12 | NUR ---
RN NOTES PT C/O ACHING, THROBBING AND SHARP PAIN ON LEFT LEG AND KNEE. 9/10 SCALE. PRN MORPHINE 2MG/ML IVP ADMINISTERED AT 0909. WILL CONTINUE TO MONITOR AND REASSESS PT.
[2021-03-04 12:00] VITALS: BP 130/78
[2021-03-04] MEDS: IV NS 0.9% 1,000 ML IV PRN (15:33)
[2021-03-04 16:00] VITALS: BP 151/78
--- NOTE | 2021-03-04 18:58 | NUR ---
DUMPER CLOSING NOTES PT IN BED RESTING AT MODERATE HIGH BACKREST POSITION. AT BEDSIDE. A/O X3-4. ABLE TO MAKE NEEDS KNOW. ON ROOM AIR, TOLERATING WELL, BREATHING EVEN AND UNLABORED. ON TELE MONITOR WITH CURRENT READING OF NSR WITH BBB'S, HR ON 90'S, NO C/O CARDIAC DISTRESS VOICED AT THIS TIME. IV ACCESS ON RIGHT HAND G#22 INTACT WITH NS @ 50ML/HR RUNNING, NO S/SX OF INFILTRATION NOTED. ALL NEEDS AND CARE ATTENDED WELL. SAFETY PRECAUTIONS MAINTAINED: BED IN LOWEST LOCKED POSITION, SIDE-RAILS UPx2. TABLE AND CALL LIGHT WITHIN REACH. WILL ENDORSE STUART TO EDUCATIONAL DIRECTOR NURSE.
[2021-03-04 20:00] VITALS: BP 136/69
[2021-03-04] MEDS: *INSULIN REGULAR(HUMULIN R)HUM 100 UNIT/ML VIAL SQ PRN (21:50)
[2021-03-05] VITALS: BP 125/76
[2021-03-05] MEDS: ONDANSETRON HCL/PF 4 MG/2 ML VIAL IVP PRN (01:06)
[2021-03-05] MEDS: HYDROCODONE/APAP 5/325MG TABLET PO PRN ×2 (02:56→15:18)
[2021-03-05] MEDS: MORPHINE SULFATE INJ 2 MG/ML DISP.SYRIN IV PRN ×2 (03:39→09:12)
--- NOTE | 2021-03-05 03:52 | NUR ---
Patient c/o pain in midsternal/epigastric area. Upon auscultation heart rate and rhythm regular, SR with BBB 78bpm on cardiac nurse specialist. When auscultating upper abdomen pt. sounds very gassy/active, had apple sauce 45 minutes prior. Given maalox and morphine d/t combined pain to L leg (chronic). Will continue to monitor. Addendum: 03/05/21 at 0401 by BARRETT PRADO RN VS 135/74, HR 83, RR 18, Temp 98.2, O2 sat 100%.
[2021-03-05 04:00] VITALS: BP 135/74
--- NOTE | 2021-03-05 04:12 | NUR ---
Patient reports pain as resolved.
[2021-03-05] MEDS: INSULIN REGULAR, HUMAN 100 UNIT/ML 3 ML VIAL SQ PRN ×3 (06:42→16:53)
[2021-03-05] MEDS: IV NS 0.9% 1,000 ML IV PRN (06:42)
[2021-03-05] MEDS: BLOOD SUGAR DIAGNOSTIC 1 EACH STRIP VI SCH ×3 (06:43→16:57)
--- NOTE | 2021-03-05 06:58 | NUR ---
Patient has been A&Ox3 overnight -at baseline. Had few episodes of pain relieved by PRN medication as well as hot pack, epigastric pain completely resolved by Maalox. No signs of dehydration NS at 50cc/hr infusing to R hand #22G IV. No hypo or hyperglycemic reactions noted.
--- NOTE | 2021-03-05 07:25 | NUR ---
LOSS CONTROL REPRESENTATIVE OPENING NOTES PT RECEIVED AWAKE IN BED IN NO ACUTE SIGNS OF DISTRESS. WATCHING TV AT THIS TIME. A/O X3-4. ABLE TO MAKE NEEDS KNOWN, NO C/O PAIN OR DISCOMFORTS AT THIS TIME. ON ROOM AIR, TOLERATING WELL, BREATHING EVEN AND UNLABORED. IVF OF NS @ 50ML/HR INFUSING TO IV ACCESS ON RIGHT HAND G#22, NO S/S OF INFILTRATION AT SITE NOTED. ON TELE MONITOR WITH CURRENT READING OF NSR WITH BBB'S, HR ON 90'S, NO C/O CARDIAC DISTRESS VOICED AT THIS TIME. SAFETY PRECAUTIONS IN PLACED: BED IN LOWEST LOCKED POSITION, SIDE-RAILS UP x2. TABLE AND CALL LIGHT WITHIN REACH. WILL CONTINUE TO MONITOR.
[2021-03-05] MEDS: PANTOPRAZOLE 40 MG TABLET.DR PO SCH (08:04)
[2021-03-05] MEDS: ASPIRIN 81 MG TAB.CHEW PO SCH (08:36)
[2021-03-05] MEDS: VALSARTAN 80 MG TABLET PO SCH (08:37)
[2021-03-05] MEDS: METOPROLOL SUCCINATE 50 MG TAB.SR.24H PO SCH (08:37)
[2021-03-05] MEDS: MEGESTROL ACETATE SUSP 400 MG/10 ML UDC PO SCH ×2 (08:38→16:47)
[2021-03-05] MEDS: RIVAROXABAN 10 MG TABLET PO SCH (08:42)
[2021-03-05] MEDS: GLUCERNA SHAKE 237 ML CAN PO SCH (08:47)
--- NOTE | 2021-03-05 09:18 | NUR ---
RN NOTES PT C/O ACHING, THROBBING AND SHARP PAIN ON GROIN, LEFT LEG AND KNEE. 8/10 SCALE. PRN MORPHINE 2MG/ML IVP ADMINISTERED AT 0919. WILL CONTINUE TO MONITOR AND REASSESS PT.
--- NOTE | 2021-03-05 16:57 | NUR ---
RN NOTES INSULIN NOT ADMINISTERED BS 122MH/DL NO COVERAGE PER SLIDING SCALE
--- NOTE | 2021-03-05 18:35 | NUR ---
LOCK ASSEMBLER CLOSING NOTES PT IN BED RESTING AT MODERATE HIGH BACKREST POSITION. AT BEDSIDE. A/O X3-4. ABLE TO MAKE NEEDS KNOW. ON ROOM AIR, TOLERATING WELL, BREATHING EVEN AND UNLABORED. ON TELE MONITOR WITH CURRENT READING OF SR WITH HR ON 'S, NO C/O CARDIAC DISTRESS VOICED AT THIS TIME. IV ACCESS ON RIGHT HAND G#22 INTACT WITH NS @ 50ML/HR RUNNING, NO S/SX OF INFILTRATION NOTED. ALL NEEDS AND CARE ATTENDED WELL. SAFETY PRECAUTIONS MAINTAINED: BED IN LOWEST LOCKED POSITION, SIDE-RAILS UPx2. TABLE AND CALL LIGHT WITHIN REACH. PATIENT WILL BE DISCHARGE TO [facility],PROCESSING TALC AND BORATE SUPERVISOR AT 8PM, ENDORSED TO [facility] RN RESOURCE CONSERVATION SPECIALIST KRISTINE. ALL BELONGINGS ENDORSED TO THE PATIENT AND SIGNED.WILL ENDORSE TO NOCTURNIST PHYSICIAN NURSE.
--- NOTE | 2021-03-05 19:30 | NUR ---
VENEER GLUE SPREADER OPENING NOTES PATIENT AWAKE IN BED WITH AT BEDSIDE, PT ALERT/ORIENTED X 3, PT ABLE TO MAKE NEEDS KNOWN. PT STABLE ON RA, NO S/S OF DISTRESS OR SOB NOTED, BREATHING EVEN AND UNLABORED. PT ON EXTERNAL COOK BARBECUE READING SINUS RHYTHM. IV ACCESS ON RIGHT HAND #22G INTACT AND FLUSHING WELL. PT DENIES PAIN OR DISCOMFORT AT THIS TIME. SAFETY MEASURES IN PLACE: CALL LIGHT WITHIN REACH, SIDE RAILS UP X 3, BED LOCKED IN LOW POSITION, BED ALARM ON. WILL CONTINUE TO MONITOR PATIENT, PT TO BE PICKED UP @ 8 PM FOR DISCHARGE TO [facility]
[2021-03-05 20:00] VITALS: BP 127/71
--- NOTE | 2021-03-05 20:10 | NUR ---
THERAPIST SPEECHPATTERN WORKER NOTE PT PICKED UP BY TRANSPORTATION FOR DISCHARGE IN STABLE CONDITION, VITAL SIGNS WNL. PT STABLE ON RA, NO S/S OF DISTRESS OR SOB NOTED, BREATHING EVEN AND UNLABORED. DISCHARGE PAPERS SIGNED AND COPIES GIVEN TO . ALL BELONGINGS ACCOUNTED FOR AND TAKEN BY FAMILY. EXTERNAL ON AWAKE COUNSELOR REMOVED. IV ACCESS ON LEFT HAND REMOVED WITH MINIMAL BLEEDING.
== END 2021-03-05 20:00 | DRG 682 ==
LOC: ER 10:26 → TELE 15:12
PROVIDERS: ADMIT Student in an Organized Health Care Education/Training Program; ATTEND Student in an Organized Health Care Education/Training Program
DX: N17.0 Acute kidney failure with tubular necrosis (principal); G93.41 Metabolic encephalopathy; E11.65 Type 2 diabetes mellitus with hyperglycemia; I12.9 Hypertensive chronic kidney disease with stage 1 through stage 4 chronic kidney disease, or unspecified chronic kidney disease; D72.829 Elevated white blood cell count, unspecified; Z20.822 Contact with and (suspected) exposure to COVID-19; E11.22 Type 2 diabetes mellitus with diabetic chronic kidney disease; M54.30 Sciatica, unspecified side; R53.1 Weakness; N18.32 Chronic kidney disease, stage 3b
CPT/HCPCS: 36415; 70450-TC; 71045-TC; 73564-TC; 76770-TC; 80048-TC; 80061-TC; 80076-TC; 81001; 82010-TC; 82570-TC; 82962-TC; 83735-TC; 83970; 84100-TC; 84155-TC; 84300-TC; 84443-TC; 84484-TC; 85025-TC; 87081-TC; 92526; 92611-TC; 97110-TC; 97116-TC; 97530-TC; C9803; G0378; J1815; J2270; J2405; J2765; J7030